=== PATIENT | female | born 1995 | race Caucasian/White ===

== ENCOUNTER 2019-09-07 09:31 | Emergency (ER) | payer OTHER, SELFPAY ==
[2019-09-07 09:44] VITALS: BP 120/66; PULSE 96; RESP 16; TEMP 36.4; O2SAT 98
--- NOTE | 2019-09-07 09:59 | ED.URI ---
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 Denies fever Related Data Home Medications Medication Instructions Recorded Confirmed norethindrone ac-eth estradiol 1 tablet PO DAILY 09/07/19 09/07/19 [07/23 (21)] Allergies Allergy/AdvReac Type Severity Reaction Status Date / Time latex Allergy Unknown HIVES Verified 09/07/19 09:55 Review of Systems Review of Systems: Narrative: CONSTITUTIONAL: has fever, chills, sweats. EYES: Denies visual changes, redness, discharge. ENT: Denies rhinorrhea, has congestion, sore throat, otalgia. Some laryngitis CARDIOVASCULAR: Denies chest pain, palpitations, edema. RESPIRATORY: Denies dyspnea, wheezing, cough GASTROINTESTINAL: Denies abdominal pain, nausea, vomiting, diarrhea. GENITOURINARY: Denies dysuria, hematuria, abnormal discharge SKIN: Denies rash or itching. NEUROLOGIC: Denies numbness, or focal weakness. PSYCHIATRIC: Denies anxiety or depression. [facility] Family History Family History (Updated 09/07/19 @ 10:00 by Kenya Crum CNP) Other No active medical problems Social History Social History (Updated 09/07/19 @ 10:01 by Kenya Crum CNP) Smoking status: Never smoker Alcohol intake: current Occupation/Education: occupation Additional occupation/education comments: EMS Comments At time of signature, I agree with nursing past medical, surgical, social and family history. There is no relevant family history pertinent to the presenting complaint. Exam Narrative: Exam Narrative: GENERAL: This is a well-nourished, well-developed patient, in no mild distress. HEAD: normocephalic, atraumatic. EYES: Sclera clear/white. Vision is grossly intact. EARS: External ears normal, auditory canals clear and without drainage, TMs normal without perforation. Hearing grossly intact. NOSE: External nose normal with nasal discharge, nares with redness, rhinorrhea. THROAT: Mucous membranes moist, posterior pharynx erythema with no exudate NECK: Neck supple, non-tender CARDIOVASCULAR: Regular rate and rhythm without murmurs, gallops, or rubs. RESPIRATORY: Clear to auscultation. Breath sounds equal bilaterally. No wheezes, rales, or rhonchi. GASTROINTESTINAL: Abdomen soft, SKIN: warm, intact with no suspicious lesions or rash, good texture and turgor. NEURO: awake, alert, and oriented to person, place and time. There were no obvious focal neurologic abnormalities. Steady gait EXTREMITIES: Normal range of motion. BACK: Nontender without deformity or crepitance. No flank tenderness. Course Course Emergency Course: Started on prednisone Mucinex and cough medicine Episodes good handwashing Vital Signs Vital signs: Vital Signs Temperature 97.6 F 09/07/19 09:44 Pulse Rate 96 09/07/19 09:44 Respiratory Rate 16 09/07/19 09:44 Blood Pressure 120/66 09/07/19 09:44 Pulse Oximetry 98 09/07/19 09:44 Temperature 97.6 F 09/07/19 09:44 Pulse Rate 96 09/07/19 09:44 Respiratory Rate 16 09/07/19 09:44 Blood Pressure 120/66 09/07/19 09:44 Pulse Oximetry 98 09/07/19 09:44 MDM - URI/Sore Throat Differential Diagnosis Differential diagnosis: Likely upper respiratory infection, sinusitis, viral infection and pharyngitis Discharge Plan Discharge Clinical Impression: Laryngitis Upper respiratory infection Qualifiers: URI type: unspecified viral URI Qualified Code(s): J06.9 - Acute upper respiratory infection, unspecified Patient Disposition: Home, Self-Care Condition: Stable Instructions: Laryngitis (ED) Prescriptions: New prednisone 20 mg tablet 20 mg PO SKYLA
== END 2019-09-07 10:10 | disposition home or self-care (01) ==
PROVIDERS: Emergency Provider Nurse Practitioner
DX: J04.0 Acute laryngitis (principal); J06.9 Acute upper respiratory infection, unspecified
CPT/HCPCS: 99213; G0463

== ENCOUNTER 2021-01-28 16:17 | Emergency (ER) | payer OTHER, SELFPAY ==
[2021-01-28 16:23] VITALS: BP 109/63; PULSE 87; RESP 20; TEMP 37.2; O2SAT 100
[2021-01-28 16:43] VITALS: BP 109/63; PULSE 87; RESP 20; TEMP 37.2; O2SAT 100
--- NOTE | 2021-01-28 17:11 | ED.SKABFB ---
HPI - Skin/Abscess/Foreign Bdy General Chief complaint: Skin/Abscess/Foreign Body Stated complaint: rash and groggy Source: patient and RN notes reviewed Mode of arrival: ambulatory History of Present Illness HPI narrative: The unvaccinated patient, a non-smoker/occasional drinker EMT worker, presents with skin eruption. Patient states she has 1/2-week history of pink somewhat itchy, raised rash on her trunk and extremities. No fever, URI, sore throat, new topical prep, new pets [ she has dog], river/ water exposure , insect/ tick bite; no CP , cough, SOB, loss of taste/ smell, N/V - but she has mental' grogginess'. Discussed causes [infectious, environmental, allergic, etc. ] will treat broadly l Related Data Allergies Allergy/AdvReac Type Severity Reaction Status Date / Time latex Allergy Unknown HIVES Verified 01/28/21 16:43 Review of Systems Review of Systems: General/Constitutional: No weight loss,fever Eyes: N0: Redness,discharge Ears/Nose/Throat: No: Epistaxis,ear discharge Respiratory: Denies: Hemoptysis Gastrointestinal: No Vomiting, Bleeding-rectal Skin: No Lumps, REPORTS eruption Neurologic: No Focal Weakness,Sz Hematologic: Denies: Petechiae/Purpura Psychiatric: No: Suicida ideationl All Other Systems: Reviewed and Negative [facility] Family History Family History (Updated 09/07/19 @ 10:00 by Kenya Crum CNP) Other No active medical problems Social History Social History (Updated 09/07/19 @ 10:01 by Kenya Crum CNP) Smoking status: Never smoker Alcohol intake: current 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 There is no relevant family history pertinent to the presenting complaint Exam Narrative: General Appearance: Well nourished Head: Normocephalic Eye: PERRLA, Conjunctiva clear Ear: External ear normal Nose: Normal nose, Nare clear Mouth/Throat: Normal appearing Neck Exam: Supple Respiratory: Airway patent, No respiratory distress Musculoskeletal: Moves all extremities, Non tender Spine/Back: Normal ROM Skin: Warm, Dry -blanching, small, isolated macular-papular eruptionof trunk and extremities Neurological: A&O x3 Psychiatric: Normal mood, Normal affect Course Vital Signs Vital signs: Vital Signs Temperature 99 F 01/28/21 16:23 Pulse Rate 87 01/28/21 16:23 Respiratory Rate 20 01/28/21 16:23 Blood Pressure 109/63 01/28/21 16:23 Pulse Oximetry 100 01/28/21 16:23 Temperature 99 F 01/28/21 16:43 Pulse Rate 87 01/28/21 16:43 Respiratory Rate 20 01/28/21 16:43 Blood Pressure 109/63 01/28/21 16:43 Pulse Oximetry 100 01/28/21 16:43 MDM - Skin/Abscess/Foreign Bdy Lab Data Labs: Lab Results 01/28/21 Range/Units 16:30 POC SARS CoV-2 Ag Negative (Negative) Discharge Plan Discharge Clinical Impression: Folliculitis Patient Disposition: Home, Self-Care Condition: Stable Instructions: Antibiotic Form Additional Instructions: Keep photo log of area Prescriptions: New methylprednisolone [Methylpred DP] 4 mg tablets,dose pack See Rx Instructions .ROUTE .COMPLEX Qty: 21 RF: 0 sulfamethoxazole-trimethoprim [Bactrim] 400-80 mg tablet 1 tablet PO BID Qty: 14 RF: 0 Follow-up/Referrals: KIA,MD CHELO [Primary Care Provider] - Stand Alone Forms: Work/School Release IP
== END 2021-01-28 17:19 | disposition home or self-care (01) ==
PROVIDERS: Emergency Provider Emergency Medicine; PCP Family Medicine
DX: L73.9 Follicular disorder, unspecified (principal)
CPT/HCPCS: 87426; 99213; C9803; G0463